=== PATIENT | female | born 1960 | race Caucasian/White ===

== ENCOUNTER → 2016-12-11 | Outpatient (CLI) | payer OTHER | LOC: MAMMO 10:03 | PROVIDERS: ATTEND Emergency Medicine | DX: Z12.31 Encounter for screening mammogram for malignant neoplasm of breast (principal) ==

== ENCOUNTER → 2019-02-08 | Outpatient (CLI) | payer BC, OTHER ==
--- NOTE | 2019-02-09 13:30 | CT ---
Procedure: CT LUNG SCREENING Exam Date: 7 03/10/2019. Ordering Provider: DANIELITO GILMAN Clinical Indication: NICOTINE DEPENDENCE current cigarette smoker. 45 pack years. This patient meets eligibility criteria for low-dose CT lung cancer screening. Comparison: None. Technique: Using a multislice scanner, sequential helical axial imaging was obtained in the thorax, 2.5 mm thickness, 2.5 mm separation, from the level of the thoracic inlet through the lung bases without IV contrast. A low dose protocol was utilized for BMI less than 30: BMI: 20.2. CTDI: 1.76 mGy. 120. kVp. 45 mA. DLP 61.9 mGy-centimeters. 2D sagittal and coronal reconstructed images, 6.0 mm thickness, were obtained. This exam was performed according to our departmental dose optimization program which includes use of automated exposure control, adjustment of the mA and/or kV according to patient size and/or use of iterative reconstruction technique. Nodule measurements under 10 mm are given as mean value of 3 axes diameters. FINDINGS: Lungs and large airways: Calcified nodule anterior right lower lobe abutting the right major fissure. Pleural parenchymal scarring bilateral lower lobes. Small calcified nodule subpleural lateral left lower lobe. Also superior segment left lower lobe laterally subpleural. Solid perifissural nodule 3 mm abutting the inferior lingula and the inferior left major fissure. Bilateral minimal blebs in the centrilobular distribution predominantly upper lung [place]. No abnormal nodules or masses. No focal infiltrates. Pleura and space: Negative. Mediastinum and tonia: evaluation limited by low dose technique and lack of IV contrast. Azygos window lymph node 1 cm with prominent fatty component. Heart and great vessels: Small calcification left main coronary artery. Atherosclerotic calcifications in the aortic arch, descending thoracic aorta, and right innominate artery. Chest wall, lower neck, axillae: Evaluation also limited by same factors as described above. Bilateral retro-muscular saline breast implants with no complications. Upper abdomen: Evaluation limited by low-dose technique. No free fluid or free air in the included peritoneal compartment. Included adrenal glands and other organs unremarkable. Osseous structures: Evaluation limited by low dose MIP technique. Dextroscoliosis. Hemangioma T10 vertebral body. No lytic or blastic lesions. IMPRESSION: Bilateral calcified nodules most likely granulomas. Minimal emphysematous changes in the upper lobes. No abnormal nodule or mass. No focal infiltrate. [facility] Best Practice recommendations: Please see below for Lung RADS category and FOLLOW-UP.* *Lung RADS category Category 1 - No nodule or definitely benign nodules (probability of malignancy less than 1%). Follow-up: Continue annual screening with Low Dose Chest CT in 12 months. Electronically signed by: Marshall Cohen MD 02/09/2019 1:28 PM CDT
--- NOTE | 2019-02-11 17:34 | MAM ---
EXAM DESCRIPTION: 3D Screening BILATERAL : Digital Mammography. CLINICAL HISTORY: 58 years Female SCREENING . No complaints. No personal or family history of breast cancer. Menarche age 12. Childbirth. Postmenopausal 30+ years. HRT less than 5 years ago. Bilateral breast augmentation. Lifetime risk of developing breast cancer (Tyrer-Cuzick model)(%): 5.6. COMPARISON: Bilateral screening digital breast tomosynthesis 12/11/2016. TECHNIQUE: Bilateral CC and MLO projection full-field images, with Kylie Implant Displacement digital tomosynthesis mammographic technique. Bilateral 2-D digital full-field images, MLO and CC projections, non-displaced. Bilateral digital 2-D full-field MLO images. With displacement. CAD not available for tomosynthesis or 2-D images. FINDINGS: The breast parenchymal density pattern is: Scattered areas of fibroglandular density. No skin thickening or nipple retraction. Bilateral saline submuscular breast implants. A fold developed in the right breast implant not on the prior study. No new focal, stellate mass or density, focal asymmetry , and no suspicious microcalcifications bilaterally. Stable mammograms , except for right breast implant, compared to prior study. IMPRESSION: Benign exam. A fold has developed in the right breast implant. BIRAD CATEGORY: 2 BENIGN FINDINGS. RECOMMENDATIONS: FOLLOW UP: Routine digital bilateral mammographic screening, one year interval from January 2019. Written communication explaining the IMPRESSION and follow-up, will be mailed to the patient and referring health care provider. According to the [employer], yearly mammograms are recommended starting at age 40 and continuing as long as a woman is in good health. Any breast change noted on a breast self-exam should be reported promptly to the patient's healthcare provider. Breast MRI is recommended for women with an approximately 20-25% or greater lifetime risk of breast cancer, including women with a strong family history of breast or ovarian cancer and women who have been treated for Hodgkin's disease. A negative mammographic report should not delay tissue diagnosis in patients with significant clinical history or physical findings. Extremely dense breast tissue limits the sensitivity of digital mammography. Electronically signed by: Marshall Cohen MD 02/11/2019 5:32 PM CDT
== END ==
LOC: CT 11:00
PROVIDERS: ATTEND Emergency Medicine
DX: Z12.31 Encounter for screening mammogram for malignant neoplasm of breast (principal); F17.210 Nicotine dependence, cigarettes, uncomplicated; R91.8 Other nonspecific abnormal finding of lung field; Z12.2 Encounter for screening for malignant neoplasm of respiratory organs
CPT/HCPCS: 77063; 77067; G0297